=== PATIENT | female | born 1965 | race Caucasian/White ===

== ENCOUNTER 2017-08-05 16:22 | Emergency (ER) | payer MEDICAID ==
[~2017-08-05] VITALS: Ht 157.5 cm; Wt 58.5 kg
[2017-08-05 16:30] VITALS: Ht 157.5 cm; Wt 58.5 kg
[2017-08-05 17:04] LABS: BASOPHIL % 1.7 % (0-2); PLATELET COUNT 225 x10^3mcL (130-400); RED CELL DISTRIBUTION WIDTH 13.5 % (11.5-14.5)
[2017-08-05 17:29] LABS: ALBUMIN 3.9 g/dL (3.4-5.0); ALKALINE PHOSPHATASE 77 U/L (46-116); ALT/SGPT 16 U/L (14-59); AMYLASE 52 U/L (25-115); AST/SGOT 12 U/L (15-37); BILIRUBIN TOTAL 0.73 mg/dL (0.20-1.00); CALCIUM 8.7 mg/dL (8.5-10.1); CARBON DIOXIDE 27.8 mmol/L (21-32); CHLORIDE SERUM 105 mmol/L (98-107); CREATININE SERUM 0.7 mg/dL (0.6-1.0); GFR1 > 60 mL/min; GLUCOSE SERUM 124 mg/dL (74-106); LIPASE 129 IU/L (73-393); POTASSIUM SERUM 3.8 mmol/L (3.5-5.1); SODIUM SERUM 140 mmol/L (136-145); TOTAL PROTEIN, SERUM 7.4 g/dL (6.4-8.2)
[2017-08-05 17:56] VITALS: BP 122/72
== END 2017-08-05 20:12 | disposition home or self-care (01) ==
LOC: ED 16:22
PROVIDERS: Specialist
DX: N83.201 Unspecified ovarian cyst, right side (principal)
CPT/HCPCS: 36415; 83880; J1885